=== PATIENT | male | born 1985 ===

== ENCOUNTER 2020-10-12 15:15 | Outpatient (REF) | payer MEDICAID, SELFPAY | END 2020-10-12 15:16 | disposition home or self-care (01) | LOC: HO.LAB 15:15 | PROVIDERS: Visit Provider Internal Medicine | DX: Z20.822 Contact with and (suspected) exposure to COVID-19 (principal) | CPT/HCPCS: 36415; C9803; U0003; U0005 ==

== ENCOUNTER 2021-11-03 01:30 | Emergency (ER) | payer MEDICAID, SELFPAY ==
[2021-11-03 01:35] VITALS: BP 153/79; PULSE 84; RESP 16; TEMP 36.8; O2SAT 98; BMI 25.8
[2021-11-03 01:56] LABS: IDNOW Serial# 08D9AD1C; Strep A Nucleic Acid Negative (Negative)
--- NOTE | 2021-11-03 02:08 | ED_ITS ---
HPI - General Adult General Chief complaint: General Medical Stated complaint: throat closing Time Seen by Provider: 11/03/21 02:06 Source: patient Mode of arrival: ambulatory Limitations: no limitations History of Present Illness HPI narrative: 35 years old male came in for evaluation of scratchy throat. Patient woke up from sleeping with scratchy throat more in the left side of his throat, patient felt that his left throat is swollen and could not breathe he that anxious and walked to the hospital for further evaluation. 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 Patient in the emergency department sitting comfortably and breathing normally. Related Data Allergies Allergy/AdvReac Type Severity Reaction Status Date / Time No Known Allergies Allergy Verified 11/03/21 01:34 Review of Systems Review of Systems: All other systems are reviewed and are negative Constitutional: Reports as per HPI and Reports no additional constitutional complaints Eyes: Reports as per HPI and Reports no additional eye complaints Reports system reviewed and no additional complaints, except as documented Cardiovascular: Reports as per HPI and Reports no additional cardiovascular complaints Respiratory: Reports as per HPI and Reports no additional respiratory complaints Gastrointestinal: Reports as per HPI and Reports no additional gastrointestinal complaints Genitourinary: Reports no additional female genitourinary complaints Musculoskeletal: Reports no additional musculoskeletal complaints Skin/Breast: Reports system reviewed and no additional complaints, except as docu Psychiatric: Reports no additional psychiatric complaints Endocrine: Reports no additional endocrine complaints Hematologic/Lymphatic: Reports no additional hematologic/lymphatic complaints Allergic/Immunologic: Reports no additional allergic/immunologic complaints Reports system reviewed and no additional complaints, except as documented and Reports Abnormal speech present [facility] Social History Social History Advance Directives: No Physical Exam ED Vital Signs: Vital Signs - 24 hr 11/03/21 01:35 Temperature 98.2 F Pulse Rate 84 Respiratory Rate 16 Blood Pressure 153/79 H Pulse Oximetry 98 BMI result Body Mass Index 25.8 Vital signs have been reviewed as appeared to be correct. Blood pressure norm al. Heart rate normal. Respiration rate normal. Temperature normal. Oxygen saturation normal. Appearance: Alert. Oriented X3. No acute distress. Head: Normal external exam. Normocephalic. Atraumatic. No Pelletier signs noted. No raccoon eyes noted Eyes: PERRLA. EOMI. Conjunctiva and sclera normal. Eyelids normal. ENT: TM's Normal. Pharynx normal. Uvula midline. Moist mucous membranes. No trismus noted. No drooling noted. No muffled voice noted. Neck: Normal inspection. Neck supple. FROM. No adenopathy. Thyroid Normal. No meningeal signs. No neck mass noted. CVS: Normal heart rate and rhythm. Heart sound normal. No murmurs noted. Pulses normal throughout. Respiratory: No respiratory distress. Painless inspiration. Breath sounds normal. No wheezes/rales/rhonchi noted. Chest nontender. No accessory muscle usage noted or decreased air movement noted. Abdomen: Soft and nontender. Bowel sounds normal in all 4 quadrants. No distention noted. No organomegaly noted. No visible injury noted. Back: No CVA tenderness. Full range of motion noted. Skin: Skin warm and dry. Normal skin color. Normal skin turgor. No rashes/lesions/lacerations noted. Extremities: No lower extremity edema. Extremities exhibit normal range of motion. Extremities nontender. Neuro: Oriented X 3. Cranial nerve exam: II-XII are grossly intact No motor deficit. No sensory deficit. Reflexes normal. Course Course Course Narrative: Assessment and plan. 35-year-old male came in for symptoms of scratchy throat and subjective feeling of throat swelling, in the emergency department patient had patent airway, with normal O2 sat, tested negative for strep pharyngitis. Will discharge the patient with reassurance. Medical Decision Making Lab Data Lab results reviewed: Yes I reviewed the patient's lab results. Labs: Lab Results 11/03/21 11/03/21 Range/Units 01:40 02:15 Influenza Type A (PCR) NEGATIVE (Negative) Influenza Type B (PCR) NEGATIVE (Negative) RSV RNA Qual (PCR) NEGATIVE (Negative) SARS-CoV-2 RNA (RT-PCR) NEGATIVE (Negative) S. pyogenes GrpA PEDRO Negative (Negative) Discharge Plan Discharge Clinical Impression: Acute sore throat Patient Disposition: Home, Self-Care Additional Instructions: Seek immediate medical attention if have difficulty breathing or swelling of the throat, fever, or chills. Referrals: Physician,Unknown J [Primary Care Provider] - 2 days Stand Alone Forms: Work/School Release
[2021-11-03 02:56] LABS: Influenza A PCR NEGATIVE (Negative); Influenza B PCR NEGATIVE (Negative); Resp Syncy Virus RNA Qual PCR NEGATIVE (Negative); SARS COV2 PCR INHOUSE NEGATIVE (Negative)
== END 2021-11-03 03:10 | disposition home or self-care (01) ==
PROVIDERS: Emergency Provider Emergency Medicine
DX: J02.9 Acute pharyngitis, unspecified (principal); Z20.822 Contact with and (suspected) exposure to COVID-19
CPT/HCPCS: 0241U; 36415; 87651; 99283

== ENCOUNTER 2021-11-26 05:20 | Emergency (ER) | payer BC, MEDICAID, SELFPAY ==
[2021-11-26] MEDS: diphenhydrAMINE HCL 50 MG/ML VIAL IVPUSH (05:53)
[2021-11-26] MEDS: Famotidine/PF 20 MG/2 ML VIAL IVPUSH (05:53)
[2021-11-26] MEDS: methylPREDNISolone Sod Succ 125 MG/2 ML VIAL IVPUSH (05:53)
[2021-11-26 06:04] VITALS: BP 140/87; PULSE 98; RESP 16; TEMP 36.6; O2SAT 97; BMI 25.1
--- NOTE | 2021-11-26 06:08 | ED.GENADULT ---
HPI - General Adult General Chief complaint: General Medical Stated complaint: THROAT SWELLING DIFF BREATING Time Seen by Provider: 11/26/21 05:42 Source: patient Mode of arrival: ambulatory History of Present Illness HPI narrative: 35-year-old male without significant past medical history presents with awakening from sleep and feeling like his throat was swelling and having pain on swallowing that did not exist prior to going to sleep. Patient denies any difficulty breathing or wheezing within his chest and denies any facial/lip/tongue swelling. Patient states he had 2 glasses of white wine as well as some marijuana prior to going to sleep and neither of these is new to the patient. Related Data Previous Rx's Medication Instructions Recorded epinephrine 0.3 mg/0.3 mL 0.3 mg (0.3 mL) IM Q4H PRN #2 ea 11/26/21 injection, auto-injector (EpiPen) Allergies Allergy/AdvReac Type Severity Reaction Status Date / Time No Known Allergies Allergy Verified 11/03/21 01:34 Review of Systems Review of Systems: Pertinent positives and negatives as stated in HPI 10 point review of systems is otherwise negative. PMFSH Past Medical History Source: nursing notes reviewed Social History Social History Alcohol intake: current Patient Tobacco Use Status: Never used Tobacco Use of substances other than those prescribed or required for medical reasons: No Advance Directives: Yes Advance Directives Information Provided: Yes Advance Directives on File: No Physical Exam ED Vital Signs: Vital Signs - 24 hr 11/26/21 06:04 Temperature 97.9 F Pulse Rate 98 Respiratory Rate 16 Blood Pressure 140/87 H Pulse Oximetry 97 BMI result Body Mass Index 25.1 VITAL SIGNS: Reviewed. GENERAL: Well developed, well nourished, in no acute distress. HEAD: Normocephalic/atraumatic EYES: PERRLA, EOMI EARS: Ext canals without abnormality, TMs non-bulging and non-erythematous NOSE: Nares patent bilateral OROPHARYNX: no oral lesions noted, posterior pharynx clear and non-erythematous without noted tonsillar enlargement/erythema/exudates, no facial/lip/tongue swelling, however significant swelling of the uvula noted without involvement of the posterior pharynx NECK: Supple, no adenopathy LUNGS: Normal breath sounds, no tachypnea, no stridor, no wheeze. SpO2<97> CARDIOVASCULAR: Regular rate and rhythm without noted murmurs ABDOMEN: Soft, non-tender, non-distended with bowel sounds. MUSCULOSKELETAL: No tenderness, deformities, or effusions noted on gross inspection. EXTREMITIES: No cyanosis, clubbing or edema. SKIN: Inspection of the skin reveals no rashes NEUROLOGIC: Alert and oriented x 4. Strength and sensation to light touch were grossly intact x 4. Course Course Course Narrative: 35-year-old male with history and clinical presentation consistent with uvulitis 0618: Recheck of posterior pharynx demonstrates increasing edema the uvula and surrounding superior tissue, again no noted posterior pharynx edema/no stridor/no wheeze. Patient will receive Epi IM. Signed out to Dr Ling Medical Decision Making Lab Data Result diagrams: 11/26/21 07:04 11/26/21 07:04 Labs: Lab Results 11/26/21 Range/Units 07:04 WBC 10.3 (4.8-10.8) X10*3/uL RBC 4.98 (4.60-5.80) X10*6/uL Hgb 14.3 (14.0-18.0) g/dl Hct 42.8 (42.0-52.0) % MCV 85.9 (80.0-98.0) fL MCH 28.7 (27.0-33.0) pg MCHC 33.4 (31.0-36.0) g/dl RDW 12.7 (11.0-16.0) % Plt Count 268 (160-400) X10*3/uL MPV 9.5 (9.4-12.4) fL Immature Gran % (Auto) 0.4 (0.0-0.4) % Neut % (Auto) 40.2 L (45-73) % Lymph % (Auto) 45.3 H (20-40) % [place] % (Auto) 11.4 H (2-11) % Eos % (Auto) 2.1 (0-4) % Baso % (Auto) 0.6 (0-2) % Lymph # (Auto) 4.7 (1.2-4.9) X10*3/uL [place] # (Auto) 1.2 (0.1-1.2) X10*3/uL Eos # (Auto) 0.2 (0.0-0.4) X10*3/uL Baso # (Auto) 0.1 (0.0-0.2) X10*3/uL Abs Immat Gran (auto) 0.04 H (0.00-0.03) X10*3/uL Absolute Neuts (auto) 4.1 (2.0-8.3) x10*3/uL Absolute Nucleated RBC 0.000 (0.0-0.012) X10*3/uL Nucleated RBC % (auto) 0.0 (0.0-0.2) /100WBC Discharge Plan Discharge Clinical Impression: Uvulitis, Allergic reaction Patient Disposition: Still a Patient Instructions: Uvulitis (ED), General Allergic Reaction (ED) Prescriptions: New epinephrine [EpiPen] 0.3 mg/0.3 mL auto-injector 0.3 mg IM Q4H PRN (Reason: anaphylaxis) Qty: 2 0RF
[2021-11-26] MEDS: EPINEPHrine 1 MG/ML VIAL 0.3 MG IM (06:29)
--- NOTE | 2021-11-26 06:42 | PC.NURSE ---
I assumed nursing care of Aquilino on his arrival to bed 7 from the waiting room. He presents for evaluation of the sensation that his throat is swelling and throat pain. He is alert, oriented x 3, calm and cooperative. Respirations non-labored, speech clear and appropriate, no cyanosis, room air sat's WNL. There is obvious redness and mild swelling noted to the pt's uvula. When the pt talks he occasionally stops mid sentence because he can feel his uvula resting on the back of his tongue. He is able to handle his own secretions without any difficulty, and he has been taking sips of cold water without any difficulty. There is no nausea, no vomiting. IV access was obtained and ordered meds were given (see EMar for times and doses). Shortly after initial meds were given he was re-assessed by ER MD who then requested Epinephrine 0.3mg IM be given. This was given and pt was placed on continuous heart monitor. HR 98, SR. Pt remains awake, alert, oriented x 3, no hoarseness, no diff swallowing or handling his own secretions. Will continue to monitor Aquilino.
[2021-11-26 07:09] LABS: Basophils Absolute Auto 0.1 X10*3/uL (0.0-0.2); Basophils Percent Auto 0.6 % (0-2); Eosinophils Absolute Auto 0.2 X10*3/uL (0.0-0.4); Eosinophils Percent Auto 2.1 % (0-4); Hematocrit 42.8 % (42.0-52.0); Hemoglobin 14.3 g/dl (14.0-18.0); Imm Gran Abs Auto 0.04 X10*3/uL (0.00-0.03); Imm Gran Pct Auto 0.4 % (0.0-0.4); Lymphocytes Absolute Auto 4.7 X10*3/uL (1.2-4.9); Lymphocytes Percent Auto 45.3 % (20-40); MANUAL DIFF FLAG NO; Mean Corpuscular HGB Conc 33.4 g/dl (31.0-36.0); Mean Corpuscular Hemoglobin 28.7 pg (27.0-33.0); Mean Corpuscular Volume 85.9 fL (80.0-98.0); Mean Platelet Volume 9.5 fL (9.4-12.4); Monocytes Absolute Auto 1.2 X10*3/uL (0.1-1.2); Monocytes Percent Auto 11.4 % (2-11); Neutrophils Absolute Auto 4.1 x10*3/uL (2.0-8.3); Neutrophils Percent Auto 40.2 % (45-73); Platelet Count 268 X10*3/uL (160-400); Red Blood Count 4.98 X10*6/uL (4.60-5.80); Red Cell Distribution Width 12.7 % (11.0-16.0); White Blood Count 10.3 X10*3/uL (4.8-10.8)
[2021-11-26 07:26] LABS: Alanine Aminotransferase 85 U/L (0-40); Alkaline Phosphatase 65 U/L (39-117); Anion Gap 11 (12-20); Aspartate Amino Transferase 42 U/L (5-37); Bilirubin Total 0.5 mg/dL (0.0-1.0); Blood Urea Nitrogen 13 mg/dL (9-16); Calcium 8.4 mg/dL (8.4-10.2); Carbon Dioxide 24 mmol/L (22-29); Chloride 108 mmol/L (96-108); Creatinine Clr Calc Pharmacy 129.7; Estimated Glomerular Filt Rate > 60; Glucose Random 128 mg/dL (60-115); Potassium 3.8 mmol/L (3.3-5.1); Sodium 139 mmol/L (135-145); Total Protein 6.9 g/dL (6.5-8.0)
[2021-11-26 08:24] VITALS: BP 147/85; PULSE 83; RESP 14; TEMP 36.7; O2SAT 96
== END 2021-11-26 11:04 | disposition home or self-care (01) ==
PROVIDERS: Student in an Organized Health Care Education/Training Program; Emergency Provider Emergency Medicine
DX: K12.2 Cellulitis and abscess of mouth (principal); T78.40XA Allergy, unspecified, initial encounter; X58.XXXA Exposure to other specified factors, initial encounter; F12.90 Cannabis use, unspecified, uncomplicated
CPT/HCPCS: 36415; 80053; 85025; 96372; 96374; 96375; 99284; J0171; J1200; J2930

== ENCOUNTER 2022-06-19 08:11 | Emergency (ER) | payer OTHER, MEDICAID, SELFPAY ==
[2022-06-19 09:11] VITALS: BP 142/79; PULSE 74; RESP 16; TEMP 36.4; O2SAT 98; BMI 25.8
--- NOTE | 2022-06-19 10:25 | ED_ITS ---
HPI - Back Pain/Injury General Chief Complaint: Back Pain/Injury Stated Complaint: back pain down l leg Time Seen by Provider: 06/19/22 10:09 Source: patient Mode of arrival: ambulatory Limitations: no limitations History of Present Illness HPI Narrative: Patient presents emergency department for evaluation of left lower back pain. Onset was 2-3 weeks ago. 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 But he did awake 1 morning with the pain. The pain has become progressively worse. Is described as aching and radiates down the left leg intermittently. It is exacerbated by particular movements are prolonged sitting/standing. Has trialed ibuprofen at home without significant improvement. Reports that he has an appointment with a chiropractor in approximately 2 weeks. Denies recent precipitating injury, fevers, chills, burning with micturition, urinary frequency/urgency/hesitancy, bladder or bowel dysfunction, numbness or tingling of the perineum or bilateral legs. Denies any recent surgical procedures, any known immune compromising conditions, personal history of cancer, or IV drug usage. MD elicited complaint: back pain Related Data Previous Rx's Medication Instructions Recorded doxycycline hyclate 100 mg capsule 100 mg PO BID 7 days #14 caps 11/26/21 epinephrine 0.3 mg/0.3 mL 0.3 mg (0.3 mL) IM Q4H PRN 11/26/21 injection, auto-injector (EpiPen) anaphylaxis #2 ea famotidine 20 mg tablet (Pepcid) 20 mg PO DAILY PRN abdominal 11/26/21 discomfort #30 tabs ondansetron 4 mg disintegrating 4 mg PO Q8H PRN nausea and 11/26/21 tablet vomiting #20 tabs prednisone 20 mg tablet 40 mg PO DAILY 4 days #8 tabs 11/26/21 cyclobenzaprine 10 mg tablet 10 mg PO TID PRN muscle spasm #20 06/19/22 tabs naproxen 500 mg tablet 500 mg PO BID PRN pain #14 tabs 06/19/22 Allergies Allergy/AdvReac Type Severity Reaction Status Date / Time No Known Allergies Allergy Verified 11/03/21 01:34 Review of Systems Review of Systems: Constitutional: No weight loss, fever, chills, weakness or fatigue. HEENT: No visual loss, blurred vision, double vision. No hearing loss, sneezing, congestion, runny nose or sore throat. Skin: No rash or itching. Cardiovascular: No chest pain, chest pressure or chest discomfort. No palpitations or pedal edema. Respiratory: No shortness of breath, cough or sputum production. Gastrointestinal: No anorexia, nausea, vomiting or diarrhea. No abdominal pain or blood in stool. Genitourinary: No burning micturition. No urinary frequency or incontinence. Neurologic: No headache, dizziness, syncope, unilateral weakness, ataxia, numbn ess or tingling in the extremities. No change in bowel or bladder control. Musculoskeletal: + Back pain as noted in HPI. No joint pain or stiffness. Hematologic: No bleeding or bruising. Lymphatics: No enlarged lymph nodes. Psychiatric:No depression or anxiety. Endocrine: No reports of sweating. No cold or heat intolerance. No polyuria or polydipsia. [facility] Past Medical History Attestation statement: The following information was validated with the patient. Source: old records reviewed Social History Social History Alcohol intake: current Patient Tobacco Use Status: Never used Tobacco Advance Directives: No Advance Directives Information Provided: No Physical Exam Vital Signs: Vital Signs: Last Vital Signs Temp 97.5 F 06/19/22 09:11 Pulse 74 06/19/22 09:11 Resp 16 06/19/22 09:11 BP 142/79 H 06/19/22 09:11 Pulse Ox 98 06/19/22 09:11 O2 Del Method 06/19/22 09:11 BMI result Body Mass Index 25.8 Vital signs have been reviewed as normal and appeared to be correct. Blood pressure normal.? Heart rate normal.? Respiration rate normal. Temperature normal.? Oxygen saturation normal. Appearance: Alert.?Oriented to person, place and time. No acute distress.?Normal affect. Eyes: Pupils equal, round and reactive to light.? ENT: Pharynx normal.?? Neck: Normal inspection.? Neck supple.?? CVS: Heart sounds normal. Normal heart rate and rhythm.? Pulses normal; bilateral radial pulses 2+, bilateral posterior tibial/dorsalis pedis pulses 2+.? Respiratory: No respiratory distress.? Lung sounds clear to auscultation bilaterally?? Abdomen: Soft and non-tender. Normoactive bowel sounds. No pulsatile mass.?? Skin: Skin warm and dry.? Normal skin color.? Normal skin turgor.?? Extremities: No lower extremity edema.? No calf ttp? Back: + mild paraspinal muscular tenderness from lumbar region to coccyx. No CVA tenderness. No midline spinal tenderness, step-off's, or deformity. Full ROM intact in bilateral lower extremities. Straight leg test negative on right; Straight leg test positive on left. No rashes, lesions, areas of induration or fluctuance, or signs of infection noted., Neuro: Moves all extremities spontaneously. 5/5 strength in hip extension/flexion, abduction, adduction. Sensation to light touch intact bilaterally. Patellar and Achilles reflex 2+ bilaterally. No ataxia, gait normal and steady. No focal neuro deficits. Course Course Course Narrative: Patient is a 36-year-old male with no significant past medical history presenting to emergency department for evaluation of left lower back pain. Pain is most consistent with muscular pain and associated lumbar radiculopathy, although cannot completely exclude herniated disc. On neurological exam there are no deficits. Not consistent with spinal fracture, spinal infection, epidural abscess, AAA, epidural abscess, or dissection. No high risk past medical history including incontinence, fever, immunosuppression, recent surgery or lumbar puncture, coagulopathy, significant trauma, recent unintentional weight loss, pulsatile mass, history of cancer, history of TB, history of IV drug use that would warrant MRI or CT. Not consistent with pyelonephritis, renal calculi, appendicitis, diverticulitis. On exam no concern for cauda equina syndrome. No imaging is currently indicated at this time. Received ketorolac IM while in the emergency department with some improvement in pain. Plan for discharge home with new prescription for naproxen and cyclobenzaprine, reviewed worrisome signs and symptoms to return back to emergency department for, advised follow-up with primary care provider, and patient agreed with plan. MDM - Back Pain/Injury Medical Records Attestation: I reviewed the patient's medical records. Discharge Plan Discharge Clinical Impression: Lumbar radiculopathy Patient Disposition: Home, Self-Care Instructions: Lumbar Radiculopathy (ED), Lower Back Exercises (ED) Additional Instructions: You can take Tylenol 500 mg, 2 tablets (1,000mg) every 4-6 hours as needed for pain, but not to exceed 3 doses daily (3,000mg).? Prescription for naproxen was sent to your pharmacy, please begin this tonight. It is taken twice daily with food to prevent stomach upset, use it as needed for pain. You have also been given a new prescription for cyclobenzaprine/Flexeril. This is a muscle relaxant. It may make you drowsy. You should not drive, operate machinery, drink alcohol while taking this medication. I recommend taking it for the first time at bedtime. It can be taken every 8 hours as needed for pain. Please return to the emergency department with any new or worsening symptoms or concerns. Contact your primary care provider to arrange for a follow-up visit later this week, as well as maintain your appointment with chiropractor as you have scheduled. Prescriptions: New naproxen 500 mg tablet 500 mg PO BID PRN (Reason: pain) Qty: 14 0RF cyclobenzaprine 10 mg tablet 10 mg PO TID PRN (Reason: muscle spasm) Qty: 20 0RF No Action epinephrine [EpiPen] 0.3 mg/0.3 mL auto-injector 0.3 mg IM Q4H PRN (Reason: anaphylaxis) Qty: 2 0RF doxycycline hyclate 100 mg capsule 100 mg PO BID 7 Days Qty: 14 0RF prednisone 20 mg tablet 40 mg PO DAILY 4 Days Qty: 8 0RF famotidine [Pepcid] 20 mg tablet 20 mg PO DAILY PRN (Reason: abdominal discomfort) Qty: 30 0RF ondansetron 4 mg tablet,disintegrating 4 mg PO Q8H PRN (Reason: nausea and vomiting) Qty: 20 0RF Referrals: Physician,Unknown J [Primary Care Provider] -
[2022-06-19] MEDS: Ketorolac Tromethamine 60 MG/2 ML VIAL IM (10:38)
== END 2022-06-19 11:30 | disposition home or self-care (01) ==
PROVIDERS: Emergency Provider Emergency Medicine
DX: M54.16 Radiculopathy, lumbar region (principal); M54.42 Lumbago with sciatica, left side
CPT/HCPCS: 96372; 99283; 99284; J1885

== ENCOUNTER 2022-08-27 09:26 | Emergency (ER) | payer OTHER, MEDICAID, SELFPAY ==
[2022-08-27 09:30] VITALS: BP 143/88; PULSE 100; RESP 19; TEMP 36.6; O2SAT 98; BMI 24.3
[2022-08-27] MEDS: methylPREDNISolone Sod Succ 125 MG/2 ML VIAL 60 MG IM (10:24)
[2022-08-27 10:48] LABS: IDNOW Serial# 6674DD1D; Strep A Nucleic Acid Negative (Negative)
--- NOTE | 2022-08-27 10:52 | ED_ITS ---
HPI - URI/Sore Throat General Chief Complaint: General Medical Stated Complaint: allergic reaction throat thighness Time Seen by Provider: 08/27/22 09:56 Source: patient Mode of arrival: ambulatory Limitations: no limitations History of Present Illness HPI Narrative: 36yoM is presenting to the ER with complaints of uvula swelling that he noticed this morning. Reports that he had a similar episode in the past and was prescribed an EpiPen although he did not want to use it due to the uvula is not as swollen as it was last time. Reports that last episode he was seen here on 11/26/2021 and he was having difficulty swallowing and breathing and at that time they did give him the EpiPen. He reports it is not that bad today therefore he does not believe he needs to EpiPen. He denies any new substances. He reports it does not actually her which is feels swollen. He denies any other symptoms complaints or concerns at this time. MD elicited complaint: other (Uvula swelling) Onset (ago): hour(s) (Started this morning) Consistency: constant Severity: mild Exacerbating factors: nothing Relieving factors: nothing Associated symptoms: denies other symptoms Treatments prior to arrival: none Related Data Previous Rx's Medication Instructions Recorded doxycycline hyclate 100 mg capsule 100 mg PO BID 7 days #14 caps 11/26/21 epinephrine 0.3 mg/0.3 mL 0.3 mg (0.3 mL) IM Q4H PRN 11/26/21 injection, auto-injector (EpiPen) anaphylaxis #2 ea famotidine 20 mg tablet (Pepcid) 20 mg PO DAILY PRN abdominal 11/26/21 discomfort #30 tabs ondansetron 4 mg disintegrating 4 mg PO Q8H PRN nausea and 11/26/21 tablet vomiting #20 tabs prednisone 20 mg tablet 40 mg PO DAILY 4 days #8 tabs 11/26/21 cyclobenzaprine 10 mg tablet 10 mg PO TID PRN muscle spasm #20 06/19/22 tabs naproxen 500 mg tablet 500 mg PO BID PRN pain #14 tabs 06/19/22 amoxicillin 875 mg-potassium 1 tab PO BID 7 days #14 tabs 08/27/22 clavulanate 125 mg tablet diphenhydramine HCl 25 mg tablet 50 mg PO TID PRN allergic reaction 08/27/22 (Benadryl Allergy) #20 tabs prednisone 20 mg tablet 40 mg PO DAILY inflammation 5 days 08/27/22 #10 tabs Allergies Allergy/AdvReac Type Severity Reaction Status Date / Time No Known Allergies Allergy Verified 11/03/21 01:34 Review of Systems Review of Systems: Constitutional : No Weight loss, No Fever, No Chills, No Night Sweats, No Fatigue, No Malaise ENT/Mouth : + uvula swelling, No Hearing loss, No Ear Pain, No Nasal Congestion, No Sinus Pain, No Hoarseness, No sore throat, No Rhinorrhea, No Swallowing Difficulty Eyes: No Eye Pain, No Swelling, No Redness, No Foreign Body, No Discharge, No Vision Changes Cardiovascular : No Chest Pain, No SOB, No Dyspnea on Exertion, No Orthopnea, No Edema, No Palpitations Respiratory : No Cough, No Sputum, No Wheezing, No Smoke Exposure, No Dyspnea Gastrointestinal : No Nausea, No Vomiting, No Diarrhea, No Constipation, No abdominal Pain, No Hematochezia, No Melena Genitourinary : no irregular bleeding, No Dysuria, No Urinary Frequency, No Hem aturia, No Urinary Incontinence, No Urgency, No Flank Pain, No Urinary Flow Changes, No Hesitancy Musculoskeletal : No joint pain, No Myalgias, No Joint Swelling Skin : No Skin Lesions, No rash Neuro : No Weakness, No Numbness, No Paresthesias, No Loss of Consciousness, No Dizziness, No Headache Psych : No Anxiety/Panic, No Depression, No SI/HI/AH/VH, No Social Issues, Heme/Lymph: No Bruising, No Bleeding,No Lymphadenopathy Endocrine : No Polyuria, No Polydipsia, No Temperature Intolerance Yes all other systems are reviewed and are negative ON LICENSE OF [facility] Past Medical History Attestation statement: The following information was validated with the patient. Source: old records reviewed and nursing notes reviewed Social History Social History Alcohol intake: current Patient Tobacco Use Status: Never used Tobacco Advance Directives: No Advance Directives Information Provided: Yes Physical Exam Vital Signs: Vital Signs: Last Vital Signs Temp 98 F 08/27/22 09:30 Pulse 100 08/27/22 09:30 Resp 19 08/27/22 09:30 BP 143/88 H 01/01/23 09:30 Pulse Ox 98 08/27/22 09:30 O2 Del Method 08/27/22 09:30 BMI result Body Mass Index 24.3 Vital signs reviewed. Blood pressure normal. Pulse normal. Respiration normal. Oxygen normal. Temperature normal. Appearance: Alert. Oriented X3. No acute distress. Head: Normal external exam. Normocephalic. Atraumatic. Eyes: PERRLA. EOMI. Conjunctiva and sclera normal. Eyelids normal. ENT: EAC normal. TM's Normal. Pharynx normal. Uvula is midline although erythematous and mild soft tissue swelling/edema. Some exudate noted on the right tonsil.. Moist mucous membranes. No lesions/ulcerations or masses noted on the tongue. Normal voice. No trismus noted. No drooling noted. No muffled voice noted. No stridor noted. Patient tolerating secretions well. Neck: Normal inspection. Neck supple. FROM. No adenopathy. Thyroid Normal. No meningeal signs. CVS: Normal heart rate and rhythm. Heart sound normal. Pulses normal throughout. No murmurs/rales/gallops. Respiratory: No respiratory distress. Painless inspiration. Breath sounds normal. No wheezes/rales/rhonchi noted. Chest nontender. No accessory muscle usage noted or decreased air movement noted. Abdomen: Soft and nontender. Back: Full range of motion noted. Nontender. Skin: Skin warm and dry. Normal skin color. Normal skin turgor. No rashes/lesions/lacerations noted. Extremities: Extremities exhibit normal range of motion and nontender. Neuro: Oriented X 3. No motor deficit. No sensory deficit. Reflexes normal. Normal steady gait. No focal neuro deficits noted. CN's II-XII intact bilaterally? Vascular: + radial pulses. Normal cap refill. No cyanosis noted to upper extremity nails Course Course Course Narrative: Patient tested for strep negative. He does have some exudate to the right tonsil. He denies any new substances. He is tolerating p.o. fluids/solids without any difficulties. No trismus/drooling/stridor. No difficulty swallowing. Uvula is midline mildly erythematous and mild soft tissue swelling. Lungs are clear to auscultation. Therefore at this time will DC home with prednisone Benadryl and some antibiotics and instructions return if any new or worsening symptoms. Patient understands agrees with this plan. Medications Administered Discontinued Medications Generic Name Dose Route Start Last Admin Trade Name Freq PRN Reason Stop Dose Admin Methylprednisolone Sodium Succinate 60 mg 08/27/22 10:12 08/27/22 10:24 Methylprednisolone Sod Succ 125 Mg/2 Ml Vial IM 08/27/22 10:13 60 mg ONCE ONE Administration Medical Decision Making Lab Data MDM Lab Attestation statement: I reviewed the patient's lab results. Labs: Lab Results 08/27/22 Range/Units 10:30 S. pyogenes GrpA PEDRO Negative (Negative) Discharge Plan Discharge Clinical Impression: Uvulitis Patient Disposition: Home, Self-Care Prescriptions: New prednisone 20 mg tablet 40 mg PO DAILY 5 Days Qty: 10 0RF diphenhydramine HCl [Benadryl Allergy] 25 mg tablet 50 mg PO TID PRN (Reason: allergic reaction) Qty: 20 0RF amoxicillin-pot clavulanate 875-125 mg tablet 1 tab PO BID 7 Days Qty: 14 0RF No Action naproxen 500 mg tablet 500 mg PO BID PRN (Reason: pain) Qty: 14 0RF cyclobenzaprine 10 mg tablet 10 mg PO TID PRN (Reason: muscle spasm) Qty: 20 0RF epinephrine [EpiPen] 0.3 mg/0.3 mL auto-injector 0.3 mg IM Q4H PRN (Reason: anaphylaxis) Qty: 2 0RF doxycycline hyclate 100 mg capsule 100 mg PO BID 7 Days Qty: 14 0RF prednisone 20 mg tablet 40 mg PO DAILY 4 Days Qty: 8 0RF famotidine [Pepcid] 20 mg tablet 20 mg PO DAILY PRN (Reason: abdominal discomfort) Qty: 30 0RF ondansetron 4 mg tablet,disintegrating 4 mg PO Q8H PRN (Reason: nausea and vomiting) Qty: 20 0RF Referrals: Physician,Unknown J [Primary Care Provider] - 3 days (Your PCP) Stand Alone Forms: Work/School Release
== END 2022-08-27 11:20 | disposition home or self-care (01) ==
PROVIDERS: Physician Assistant Medical; Emergency Provider Emergency Medicine
DX: K12.2 Cellulitis and abscess of mouth (principal); Z20.822 Contact with and (suspected) exposure to COVID-19; Z79.899 Other long term (current) drug therapy
CPT/HCPCS: 36415; 87651; 96372; 99283; 99284; J2930

== ENCOUNTER 2022-11-16 05:42 | Emergency (ER) | payer OTHER, MEDICAID, SELFPAY ==
--- NOTE | 2022-11-16 08:37 | ED_ITS ---
HPI - General Adult General Chief complaint: General Medical Time Seen by Provider: 11/16/22 08:03 Source: other History of Present Illness HPI narrative: This patient is a sign-out from Dr. Beckford and you should refer to her down time form for further information. Related Data Previous Rx's Medication Instructions Recorded doxycycline hyclate 100 mg capsule 100 mg PO BID 7 days #14 caps 11/26/21 epinephrine 0.3 mg/0.3 mL 0.3 mg (0.3 mL) IM Q4H PRN 11/26/21 injection, auto-injector (EpiPen) anaphylaxis #2 ea famotidine 20 mg tablet (Pepcid) 20 mg PO DAILY PRN abdominal 11/26/21 discomfort #30 tabs ondansetron 4 mg disintegrating 4 mg PO Q8H PRN nausea and 11/26/21 tablet vomiting #20 tabs prednisone 20 mg tablet 40 mg PO DAILY 4 days #8 tabs 11/26/21 cyclobenzaprine 10 mg tablet 10 mg PO TID PRN muscle spasm #20 06/19/22 tabs naproxen 500 mg tablet 500 mg PO BID PRN pain #14 tabs 06/19/22 amoxicillin 875 mg-potassium 1 tab PO BID 7 days #14 tabs 08/27/22 clavulanate 125 mg tablet diphenhydramine HCl 25 mg tablet 50 mg PO TID PRN allergic reaction 08/27/22 (Benadryl Allergy) #20 tabs prednisone 20 mg tablet 40 mg PO DAILY inflammation 5 days 08/27/22 #10 tabs Allergies Allergy/AdvReac Type Severity Reaction Status Date / Time No Known Allergies Allergy Verified 11/03/21 01:34 Review of Systems Review of Systems: Refer to the down time documentation. [facility] Past Medical History Source: nursing notes reviewed Social History Social History Alcohol intake: current Patient Tobacco Use Status: Never used Tobacco Advance Directives: No Physical Exam ED Vital Signs: Referred to the down time documentation 0839: I re-evaluated the patient at bedside and although the uvula is slightly erythematous with trace edema there is no concern for airway or swallowing compromise. Medical Decision Making Medical Decision Making MDM Narrative: 36-year-old male with history and clinical presentation of recurrent uvulitis that is not allergic in response and appears to be associated with possible NASREEN. We had a lengthy discussion at bedside and my recommendation to the patient is to follow-up with his primary care provider and discuss the merits of either a sleep study for CPAP at night or possible ENT referral. He is otherwise discharged home in stable condition Differential Diagnosis Please see the discussion above Discharge Plan Discharge Clinical Impression: Uvulitis Patient Disposition: Home, Self-Care Instructions: Uvulitis (ED) Additional Instructions: Recommend follow-up with your primary care provider for further discussion regarding a sleep study and/or a referral to follow-up with ENT. Do not hesitate to return to the emergency room for any worsening symptoms. Prescriptions: No Action naproxen 500 mg tablet 500 mg PO BID PRN (Reason: pain) Qty: 14 0RF cyclobenzaprine 10 mg tablet 10 mg PO TID PRN (Reason: muscle spasm) Qty: 20 0RF prednisone 20 mg tablet 40 mg PO DAILY 5 Days Qty: 10 0RF diphenhydramine HCl [Benadryl Allergy] 25 mg tablet 50 mg PO TID PRN (Reason: allergic reaction) Qty: 20 0RF amoxicillin-pot clavulanate 875-125 mg tablet 1 tab PO BID 7 Days Qty: 14 0RF epinephrine [EpiPen] 0.3 mg/0.3 mL auto-injector 0.3 mg IM Q4H PRN (Reason: anaphylaxis) Qty: 2 0RF doxycycline hyclate 100 mg capsule 100 mg PO BID 7 Days Qty: 14 0RF prednisone 20 mg tablet 40 mg PO DAILY 4 Days Qty: 8 0RF famotidine [Pepcid] 20 mg tablet 20 mg PO DAILY PRN (Reason: abdominal discomfort) Qty: 30 0RF ondansetron 4 mg tablet,disintegrating 4 mg PO Q8H PRN (Reason: nausea and vomiting) Qty: 20 0RF
== END 2022-11-16 08:56 | disposition home or self-care (01) ==
PROVIDERS: Emergency Provider Student in an Organized Health Care Education/Training Program
DX: K12.2 Cellulitis and abscess of mouth (principal); Z79.899 Other long term (current) drug therapy
CPT/HCPCS: 96374; 96375; 99284

== ENCOUNTER → 2024-09-02 09:59 | Outpatient (BNV) | payer OTHER, MEDICAID, SELFPAY | PROVIDERS: Emergency Provider Emergency Medicine; Visit Provider Internal Medicine | DX: R94.31 Abnormal electrocardiogram [ECG] [EKG] (principal) | CPT/HCPCS: 93010 ==

== ENCOUNTER 2025-03-05 13:29 | Emergency (ER) | payer BC, SELFPAY ==
--- NOTE | ~2025-03-05 | XR_ITS ---
EXAMINATION: XR CHEST CLINICAL INFORMATION: chest pain COMPARISON: None available. TECHNIQUE: 2 views of the chest were obtained. FINDINGS: The cardiac, hilar, and mediastinal contours are normal. The lungs are clear bilaterally. There is no pneumothorax or pleural effusion. There is no focal osseous or soft tissue abnormality. XR/XR chest 2V IMPRESSION: Normal chest. Electronically signed by: Brown Horner MD 03/05/2025 02:23 PM EDT
--- NOTE | 2025-03-05 13:34 | ECG_ITS ---
Test Reason : CHEST PAIN Blood Pressure : */* mmHG Vent. Rate : 82 BPM Atrial Rate : 82 BPM P-R Int : 136 ms QRS Dur : 78 ms QT Int : 346 ms P-R-T Axes : 38 42 -4 degrees QTcB Int : 404 ms Normal sinus rhythm Nonspecific T wave abnormality Abnormal ECG When compared with ECG of 02-Sep-2024 10:34, Nonspecific T wave abnormality no longer evident in Anterior leads Referred By: dAdis Masters Electronically Signed By: Gaston Goel
[2025-03-05 13:51] VITALS: BP 121/73; PULSE 93; RESP 16; TEMP 36.5; O2SAT 96; BMI 25.3
--- NOTE | 2025-03-05 13:51 | ED_ITS ---
HPI - General Adult General Chief complaint: Chest Pain Stated complaint: sob chest tightness Time Seen by Provider: 03/05/25 17:00 Source: patient and RN notes reviewed Mode of arrival: ambulatory Limitations: no limitations History of Present Illness ED Provider: Addis Masters PA-C HPI narrative: This is a 39-year-old male, with no known medical problems, who presents emergency department with complaints of subjective fevers, chills, cough, congestion, diarrhea for the last 2 days. Patient reports that he also has had intermittent chest tightness, which typically occurs with cough. No sick contacts. He has been taking NyQuil and DayQuil for symptoms. No significant shortness for breath or severe chest pain. No nausea or vomiting.. No other complaints or concerns at this time. MD complaint: Cough, fevers Onset (ago): day(s) Relieving factors: none Exacerbating factors: none Associated symptoms: cough and fever/chills Treatments prior to arrival: none Related Data Previous Rx's ?Medication ?Instructions ?Recorded doxycycline hyclate 100 mg capsule 100 mg PO BID 7 day s #14 caps 11/26/21 epinephrine 0.3 mg/0.3 mL 0.3 mg (0.3 mL) IM Q4H PRN 0 11/26/21 injection, auto-injector (EpiPen) anaphylaxis #2 ea famotidine 20 mg tablet (Pepcid) 20 mg PO DAILY PRN ab dominal 11/26/21 discomfort #30 tabs ondansetron 4 mg disintegrating 4 mg PO Q8H PRN nausea and 11/26/21 tablet vomiting #20 tabs prednisone 20 mg tablet 40 mg (2 x 20 mg) PO DAILY 4 days 11/26/21 #8 tabs cyclobenzaprine 10 mg tablet 10 mg PO TID PRN muscle s pasm #20 06/19/22 tabs naproxen 500 mg tablet 500 mg PO BID PRN pain #14 t abs 06/19/22 amoxicillin 875 mg-potassium 1 tab PO BID 7 days #14 t abs 08/27/22 clavulanate 125 mg tablet diphenhydramine HCl 25 mg tablet 50 mg (2 x 25 mg) PO TID PRN 08/27/22 (Benadryl Allergy) allergic reaction #20 tabs prednisone 20 mg tablet 40 mg (2 x 20 mg) PO DAILY 0 08/27/22 inflammation 5 days #10 tabs acetaminophen 500 mg tablet 1,000 mg (2 x 500 mg) PO Q 6H PRN 03/05/25 (Tylenol Extra Strength) fever or pain #30 tabs ibuprofen 600 mg tablet 600 mg PO Q6H PRN fever or p ain 03/05/25 #30 tabs Allergies Allergy/AdvReac Type Severity Reaction Status Date / Time No Known Allergies Allergy Verified 03/05/25 13:52 Review of Systems 2 Review of Systems: Yes all other systems are reviewed and are negative Constitutional: Constitutional: Reports as per [facility] Social History Social History Alcohol intake: current Alcohol intake frequency: 3 or more drinks per day Alcohol type: beer, wine and hard liquor Patient Tobacco Use Status: Never used Tobacco Substance Use Type: Marijuana Advance Directives: No Advance Directives Information Provided: No Physical Exam ED Vital Signs: Vital Signs - 24 hr 03/05/25 13:51 03/05/25 16:54 03/05/25 17:20 Temperature 97.7 F 98.2 F Pulse Rate 93 62 62 Respiratory Rate 16 16 16 Blood Pressure 121/73 128/88 128/88 Pulse Oximetry 96 98 98 Oxygen Delivery Method Room Air Room Air Room Air BMI result Body Mass Index 25.3 Const General: cooperative, comfortable and no acute distress Orientation/consciousness: patient oriented x3 Limitations: no limitations [facility] Head: Yes normal to inspection, Yes normocephalic and Yes atraumatic Ears: hearing grossly normal bilaterally General nose exam: Normal external nose present Face and sinus: Yes normal facial exam Mouth: Normal oral and palatal mucosa present, oropharynx normal and moist mucous membranes Throat: Yes posterior oropharynx normal Eyes General: appearance normal, both eyes and all related structures Eyelids: Yes eyelids normal Conjunctivae: conjunctivae normal Sclerae: sclerae normal Pupils: Equal, round and reactive pupils present EOM: EOMs intact bilaterally Neck Neck: Yes normal visual inspection, Yes full ROM and Yes no lymphadenopathy Lymphatic: no lymphadenopathy noted Chest Chest palpation & inspection: normal inspection of the chest Resp Effort & Inspection: normal respiratory effort and able to speak in complete sentences Auscultation: clear to auscultation bilaterally, no crackles, no rales, no rhonchi and no wheezes Cardio Rate: regular rate Rhythm: regular rhythm Heart sounds: S1 normal heart sound present and S2 normal heart sound present GI Inspection: Yes normal to inspection Skin General skin exam: no rashes or lesions noted Trauma: no lacerations or abrasions Wounds: no wounds Neuro General: patient oriented x3 and moves all extremities Cranial nerves: Yes Equal, round and reactive pupils present Extrem General: Yes normal to inspection Right upper extremity: normal to inspection Left upper extremity: normal to inspection Right lower extremity: normal to inspection Left lower extremity: normal to inspection Medical Decision Making Medical Decision Making [facility] Narrative: This is a 57-bdle-lco-male, with a hx of anxiety, who presents to the ER with a complaint of fevers, cough, congestion, diarrhea. Patient reports that he had an episode feeling warm, had a near syncopal episode, he states that he has had some ongoing chest tightness for the last several days. On arrival, vital signs within normal limits. He is speaking full sentences under no acute distress. Differential diagnoses include acute URI, COVID, flu, RSV, pneumonia. We ordered labs to rule out any acute abnormalities. He has no leukocytosis, stable H&H, chemistry within normal limits. Patient tested positive for COVID. Chest x-ray unremarkable for any acute findings, EKG with no acute ischemia. Discussed overall workup with patient. He is eating and drinking without difficulty. Reports some chest tightness which only occurs with cough. Discussed conservative measures in treatment of COVID. He understands and agrees with plan. He was given strict return precautions, patient stable for discharge. Differential Diagnosis Differential Diagnoses: The differential diagnosis associated with the presentation includes See above Lab Data [facility] Lab Attestation statement: I reviewed the patient's lab results. See MDM and course 03/05/25 15:57 03/05/25 15:57 Labs: Lab Results 03/05/25 Range/Units 15:57 WBC 9.1 (4.8-10.8) X10*3/uL RBC 5.40 (4.60-5.80) X10*6/uL Hgb 15.7 (14.0-18.0) g/dl Hct 45.6 (42.0-52.0) % MCV 84.4 (80.0-98.0) fL MCH 29.1 (27.0-33.0) pg MCHC 34.4 (31.0-36.0) g/dl RDW 12.9 (11.0-16.0) % Plt Count 254 (160-400) X10*3/uL MPV 9.6 (9.4-12.4) fL Immature Gran % (Auto) 0.3 (0.0-0.4) % Neut % (Auto) 61.0 (45-73) % Lymph % (Auto) 24.3 (20-40) % Hitchcock % (Auto) 9.9 (2-11) % Eos % (Auto) 3.5 (0-4) % Baso % (Auto) 1.0 (0-2) % Lymph # (Auto) 2.2 (1.2-4.9) X10*3/uL Hitchcock # (Auto) 0.9 (0.1-1.2) X10*3/uL Eos # (Auto) 0.3 (0.0-0.4) X10*3/uL Baso # (Auto) 0.1 (0.0-0.2) X10*3/uL Abs Immat Gran (auto) 0.03 (0.00-0.03) X10*3/uL Absolute Neuts (auto) 5.5 (2.0-8.3) x10*3/uL Absolute Nucleated RBC 0.000 (0.0-0.012) X10*3/uL Nucleated RBC % (auto) 0.0 (0.0-0.2) /100WBC Sodium 138 (135-145) mmol/L Potassium 4.9 D (3.3-5.1) mmol/L Chloride 107 (96-108) mmol/L Carbon Dioxide 26 (22-29) mmol/L Anion Gap 10 L (12-20) BUN 8 L (9-16) mg/dL Creatinine 0.86 (0.5-1.4) mg/dL Estim Creat Clear Calc 117.6 Estimated GFR > 60 Random Glucose 102 (60-115) mg/dL Calcium 9.2 (8.4-10.2) mg/dL Magnesium 2.5 (1.6-2.6) mg/dL Total Bilirubin 0.1 (0.0-1.0) mg/dL Direct Bilirubin < 0.2 (0.0-0.5) mg/dL AST 29 (5-37) U/L ALT 56 H (0-40) U/L Alkaline Phosphatase 72 (39-117) U/L Troponin I High Sens < 2.7 (<3.5-35.0) ng/L Total Protein 7.3 (6.5-8.0) g/dL Albumin 4.3 (3.5-5.0) g/dL Influenza Type A (PCR) NEGATIVE (Negative) Influenza Type B (PCR) NEGATIVE (Negative) RSV RNA Qual (PCR) NEGATIVE (Negative) SARS-CoV-2 RNA (RT-PCR) POSITIVE A (Negative) S. pyogenes GrpA PEDRO Negative (Negative) Independent Interpretation I performed an independent interpretation of an: EKG Interpretation: EKG normal sinus rhythm at a ventricular rate of 82 beats per minute, QT QTC 346/404, no STEMI. Radiology Impression Discussion of test interpretation with radiology: I have reviewed the radiologist's reading. Radiologist Impression: EXAMINATION: XR CHEST CLINICAL INFORMATION: chest pain COMPARISON: None available. TECHNIQUE: 2 views of the chest were obtained. FINDINGS: The cardiac, hilar, and mediastinal contours are normal. The lungs are clear bilaterally. There is no pneumothorax or pleural effusion. There is no focal osseous or soft tissue abnormality. XR/XR chest 2V IMPRESSION: Normal chest. Electronically signed by: Brown Horner MD 03/05/2025 02:23 PM EDT RP Dictated By: Brown Horner MD Discharge Plan Discharge Clinical Impression: COVID-19 Patient Disposition: Home, Self-Care Instructions: COVID-19 (Coronavirus Disease 2019) (ED), How to Recover from COVID-19 at Home (ED), Social Distancing Guidelines for COVID-19 (ED) Additional Instructions: You were seen in the emergency department and tested positive for COVID. Please drink plenty of fluids, and get plenty of rest. Alternate between ibuprofen and Tylenol as needed for fevers, and body aches. Take ibuprofen 600 mg every 6 hours with food. 2 hours later, you can take Tylenol 1000 mg, take this every 8 hours. Alternating between these 2 medications can provide you with good fever and body aches relief. If any new or worsening symptoms occur including but not limited to severe chest pain or shortness of breath, please seek emergent care. Prescriptions: New ibuprofen 600 mg tablet 600 mg PO Q6H PRN (Reason: fever or pain) Qty: 30 0RF acetaminophen [Tylenol Extra Strength] 500 mg tablet 1,000 mg PO Q6H PRN (Reason: fever or pain) Qty: 30 0RF No Action naproxen 500 mg tablet 500 mg PO BID PRN (Reason: pain) Qty: 14 0RF cyclobenzaprine 10 mg tablet 10 mg PO TID PRN (Reason: muscle spasm) Qty: 20 0RF prednisone 20 mg tablet 40 mg PO DAILY 5 Days Qty: 10 0RF diphenhydramine HCl [Benadryl Allergy] 25 mg tablet 50 mg PO TID PRN (Reason: allergic reaction) Qty: 20 0RF amoxicillin-pot clavulanate 875-125 mg tablet 1 tab PO BID 7 Days Qty: 14 0RF epinephrine [EpiPen] 0.3 mg/0.3 mL auto-injector 0.3 mg IM Q4H PRN (Reason: anaphylaxis) Qty: 2 0RF doxycycline hyclate 100 mg capsule 100 mg PO BID 7 Days Qty: 14 0RF prednisone 20 mg tablet 40 mg PO DAILY 4 Days Qty: 8 0RF famotidine [Pepcid] 20 mg tablet 20 mg PO DAILY PRN (Reason: abdominal discomfort) Qty: 30 0RF ondansetron 4 mg tablet,disintegrating 4 mg PO Q8H PRN (Reason: nausea and vomiting) Qty: 20 0RF Stand Alone Forms: Work/School Release Interventions: ED Discharge Assessment Last Done: 03/05/25 17:20 Discharge Date/Time: 03/05/25 17:20 Print Language: Kittitian
[2025-03-05 16:01] LABS: MANUAL DIFF FLAG NO
[2025-03-05 16:04] LABS: Hematocrit 45.6 % (42.0-52.0); Hemoglobin 15.7 g/dl (14.0-18.0); Imm Gran Abs Auto 0.03 X10*3/uL (0.00-0.03); Imm Gran Pct Auto 0.3 % (0.0-0.4); Lymphocytes Absolute Auto 2.2 X10*3/uL (1.2-4.9); Mean Corpuscular HGB Conc 34.4 g/dl (31.0-36.0); Mean Corpuscular Hemoglobin 29.1 pg (27.0-33.0); Mean Corpuscular Volume 84.4 fL (80.0-98.0); NRBC Abs Auto 0.000 X10*3/uL (0.0-0.012); NRBC Pct Auto 0.0 /100WBC (0.0-0.2); Platelet Count 254 X10*3/uL (160-400); Red Blood Count 5.40 X10*6/uL (4.60-5.80); White Blood Count 9.1 X10*3/uL (4.8-10.8)
[2025-03-05 16:15] LABS: IDNOW Serial# 55D5AD1C; Strep A Nucleic Acid Negative (Negative)
[2025-03-05 16:18] LABS: Alanine Aminotransferase 56 U/L (0-40); Albumin Level 4.3 g/dL (3.5-5.0); Alkaline Phosphatase 72 U/L (39-117); Anion Gap 10 (12-20); Aspartate Amino Transferase 29 U/L (5-37); Blood Urea Nitrogen 8 mg/dL (9-16); Calcium 9.2 mg/dL (8.4-10.2); Carbon Dioxide 26 mmol/L (22-29); Chloride 107 mmol/L (96-108); Creatinine Clr Calc Pharmacy 117.6; Estimated Glomerular Filt Rate > 60; Magnesium 2.5 mg/dL (1.6-2.6); Potassium 4.9 mmol/L (3.3-5.1); Sodium 138 mmol/L (135-145); Total Protein 7.3 g/dL (6.5-8.0)
[2025-03-05 16:27] LABS: Troponin-I High Sensitivity < 2.7 ng/L (<3.5-35.0)
[2025-03-05 16:40] LABS: Resp Syncy Virus RNA Qual PCR NEGATIVE (Negative); SARS COV2 PCR INHOUSE POSITIVE (Negative)
[2025-03-05 16:54] VITALS: BP 128/88; PULSE 62; RESP 16; O2SAT 98
[2025-03-05 17:20] VITALS: BP 128/88; PULSE 62; RESP 16; TEMP 36.8; O2SAT 98
== END 2025-03-05 17:20 | disposition home or self-care (01) ==
PROVIDERS: Physician Assistant Medical; Emergency Provider Emergency Medicine Emergency Medical Services
DX: U07.1 COVID-19 (principal); R06.02 Shortness of breath; R50.9 Fever, unspecified; R05.9 Cough, unspecified
CPT/HCPCS: 71046; 80048; 80076; 83735; 84484; 85025; 87637; 87651; 93005; 99283

== ENCOUNTER → 2025-03-05 13:34 | Outpatient (BNV) | payer BC, SELFPAY | PROVIDERS: Emergency Provider Emergency Medicine Emergency Medical Services; Visit Provider Internal Medicine Cardiovascular Disease | DX: R91.8 Other nonspecific abnormal finding of lung field (principal); R07.9 Chest pain, unspecified | CPT/HCPCS: 93010 ==

== ENCOUNTER → 2025-03-05 13:53 | Outpatient (BNV) | payer OTHER, SELFPAY | PROVIDERS: Visit Provider Radiology Diagnostic Radiology | DX: R07.9 Chest pain, unspecified (principal) | CPT/HCPCS: 71046 ==

== ENCOUNTER 2025-08-26 06:27 | Emergency (ER) | payer BC, OTHER, SELFPAY ==
--- NOTE | ~2025-08-26 | XR_ITS ---
EXAMINATION: XR CHEST 1 VIEW HISTORY: cough COMPARISON: Comparison is made with the prior examination dated 03/05/2025. FINDINGS: A single AP portable view of the chest performed at is submitted. The lungs are expanded and clear. There is no pleural effusion, pneumothorax, or pulmonary vascular congestion. The heart is normal in size. The bones are intact. XR/XR chest 1V IMPRESSION: No acute cardiopulmonary abnormality. Electronically signed by: Nakul Feliciano MD 08/26/2025 08:05 AM [facility] [place]
[2025-08-26 06:31] VITALS: BP 137/90; PULSE 95; RESP 20; TEMP 36.8; O2SAT 98; BMI 25.1
[2025-08-26 06:52] LABS: MANUAL DIFF FLAG NO
[2025-08-26 06:53] LABS: Hematocrit 46.0 % (42.0-52.0); Hemoglobin 15.8 g/dl (14.0-18.0); Imm Gran Abs Auto 0.01 X10*3/uL (0.00-0.03); Imm Gran Pct Auto 0.1 % (0.0-0.4); Lymphocytes Absolute Auto 3.0 X10*3/uL (1.2-4.9); Mean Corpuscular HGB Conc 34.3 g/dl (31.0-36.0); Mean Corpuscular Hemoglobin 28.6 pg (27.0-33.0); Mean Corpuscular Volume 83.2 fL (80.0-98.0); NRBC Abs Auto 0.000 X10*3/uL (0.0-0.012); NRBC Pct Auto 0.0 /100WBC (0.0-0.2); Platelet Count 257 X10*3/uL (160-400); Red Blood Count 5.53 X10*6/uL (4.60-5.80); White Blood Count 7.4 X10*3/uL (4.8-10.8)
[2025-08-26 07:07] LABS: Alanine Aminotransferase 70 U/L (0-40); Albumin Level 4.3 g/dL (3.5-5.0); Alkaline Phosphatase 86 U/L (39-117); Anion Gap 12 (12-20); Aspartate Amino Transferase 42 U/L (5-37); Blood Urea Nitrogen 8 mg/dL (9-16); Calcium 8.6 mg/dL (8.4-10.2); Carbon Dioxide 23 mmol/L (22-29); Chloride 110 mmol/L (96-108); Creatinine Clr Calc Pharmacy 114.9; Estimated Glomerular Filt Rate > 60; Potassium 4.1 mmol/L (3.3-5.1); Sodium 141 mmol/L (135-145); Total Protein 7.6 g/dL (6.5-8.0)
--- OUTSIDE RECORDS SUMMARY | 2025-08-26 07:44 | XMS_ITS | Clinical Summary ---
Author Organization [facility] Address [address] [address] Phone Care Team Providers Care Gum Machine Filler Name Role Phone Jailene Young MD Unavailable [phone] Raleigh Rosales MD Unavailable [phone] Yanet Ferguson [facility] Primary Care Provid er Allergies Active Allergy Reactions Criticality Noted Date Comments Sulfa (Sulfonamide Antibiotics) Hives 11/2016 Medications EPINEPHrine 0.3 mg/0.3 mL auto-injector INJECT 1 PEN IN THE MUSCLE ONE TIME DIRECTED 11/26/2021 Active LORazepam (ATIVAN) 0.5 MG tabletIndicatio ns:Panic disorder (episodic paroxysmal anxiety) Take 1 tablet (0.5 mg total) by mouth 2 (two) times a day as needed for anxiety. 20 tablet 08/10/2023 Active fluticasone propionate (FLONASE) 50 mcg/actuation nasal spray 1 spray by Nasal route 2 (two) times a day. 16 g 11/22/2023 Active hydrOXYzine (ATARAX) 50 MG tablet Take 1 tablet (50 mg total) by mouth nightly at bedtime as needed (sleep). 30 tablet 11/22/2023 Active Active Problems Problem Noted Date Diagnosed Date Fluid level behind tympanic membrane of left ear 11/25/2023 Assessment & Plan (11/25/2023 11:29 AM EDT): Patient with mild middle ear effusion-May be cause of symptoms. Suspect allergy related-will treat with Flonase, Sudafed, hydroxyzine. Acute hearing loss of left ear 11/25/2023 Assessment & Plan (11/25/2023 11:30 AM EDT): Patient with mild acute hearing loss of left ear-recommended treatment with high-dose prednisone to preserve hearing. Patient to follow-up if persistent despite treatment. Mixed hyperlipidemia 09/03/2023 Pain in right elbow 08/10/2023 Assessment & Plan (09/17/2023 10:02 AM EST): History and exam most c/w lateral epicondylitis vs other overuse syndrome/tendonitis. Reviewed conservative measures of relative rest, applying ice regularly, [id number] NSAIDs, (ibuprofen or naproxen) and / or acetaminophen. Home physical therapy exercises/care instructions have been provided. Discussed potential benefit of tennis elbow strap. If symptoms persist, could arrange for formal physical therapy referral. Discussed other possible interventions like corticosteroid injection if symptoms are refractory. Overweight with body mass in dex (BMI) of 25 to 25.9 in adult 08/10/2023 Assessment & Plan (09/17/2023 10:02 AM EST): Weight stable, BMI 25.15. Continue efforts re: healthy, balanced diet and active lifestyle. Alcohol intake above recommended sensible limits 08/10/2023 Assessment & Plan (09/17/2023 10:06 AM EST): Report frequent low level drinking (1-2 glasses of wine 3-4 nights/week) and rare binges (>4 drinks every few months). Alcohol screening borderline indicative of alcohol misuse, Audit-C 12/06. Reviewed health consequences associated with prolonged exposure to heavy amounts of alcohol. Discussed concerns of utilizing alcohol to numb feelings of depression/anxiety. Informed patient to let us know if their relationship with alcohol changes as we have resources available for them. He does not feel this causes him any problems. Will follow-up at future visits. Check liver function. Panic disorder (episodic paroxysmal anxiety) Assessment & Plan (09/17/2023 10:09 AM EST): Recent experience of severe anxiety/panic resulting in ED visit. No current medications, discussed concept of daily vs PRN medications, risks/benefits/side effects reviewed. Not interested in starting daily SSRI/SNRI. Rx sent for sparing use of lorazepam PRN. Emphasized the importance of cognitive skills and encouraged pt to connect with a therapist. Can self-refer to any area office including [facility], [facility] and [facility]. Also suggested he explore online options through [employer] and/or [employer]. Discussed that the best outcomes, with lowest chance of remission occurs with a combination of medication, counseling and good self-care: healthy eating, adequate sleep, avoiding negative psychoactive substances [like alcohol, caffeine] and regular exercise. Resolved Problems Problem Noted Date Diagnosed Date Resolved Date Abdominal pain, diffuse 06/25/201905/29 Abdominal pain, epigastric 06/25/2019 0 09/17/2023 Assessment & Plan (06/26/2019 7:41 AM EDT): She will initially with some sternal pain does not sound cardiac at all as he is able to exercise weight lift etc. without difficulty did recommend trial of PPI as it sounds like he has gastritis as he has nausea and also gets associated reflux symptoms no melena or dysphasia. Did discuss upper GI or endoscopy if problems persist warned of potential side effects from omeprazole SBO (small bowel obstruction) 07/11/2018 08/10/2023 Assessment & Plan (07/13/2018 1:51 PM EST): Patient admitted with acute onset abdominal pain nausea and vomiting. CT suggestive of SBO. Patient with no prior history of small bowel obstruction or abdominal surgery. He has been seen by Dr. Heath of surgery who recommended conservative management and monitoring. Patient has been slowly improving with some decrease in pain but also normalization of white count flatus hunger. His x-ray is also improved advance diet to clears, continue small rate of IV fluid try to transition to oral pain medication Immunizations Immunization Administration Dates Next Due Influenza Quadrivalent Preservative Free IM 06/27 Tdap 12/10/2013 Family History Medical History Relation Comments Stomach cancer Maternal Grandmother Diabetes type II Mother Breast cancer Paternal Cousin 1 Diabetes type I Paternal Cousin 2 Irritable bowel syndrome Sister Colon cancer Neg Hx Heart disease Neg Hx Prostate cancer Neg Hx Relation Status Comments Maternal Grandmother Mother Paternal Cousin 1 Paternal Cousin 2 Alive Sister Social History Tobacco Use Types Packs/Day Years Used Date Smoking Tobacco: Some Days Cigarettes Smokeless Tobacco: Never Tobacco Cessation:Ready to Q uit: Not Asked; Counseling Given: Not Answered Comments:Socially, doesn't buy his own, will smoke 1-2 when out Alcohol Use Standard Drinks/Week Comments Yes 8 (1 standard drink = 0.6 oz pure alcohol) 1-2 glasses of wine 3-4 nights/week. >4 drinks every few months Child or Family Care Answer Date Record ed Do you have problems with on e of the following making it difficult for you to work, study, or receive health care? No 08/03/2023 Education Answer Date Recorded Are you interested in more education? Not on julissa e 08/12/2025 Are you concerned about learning? Not on file 08/12/2025 No 08/12/2025 No 08/12/2025 Food Answer Date Recorded Within the past 6 months we worried whether our food would run out before we got money to buy more. Never True 08/03/2023 Within the past 6 months the food we bought just didn't last and we didn't have enough money to get more. Never True Residential Stability Answer Date Recor ded What is your housing situation today? I have cesar ott 08/03/2023 How many times have you move d in the past 12 months? Zero (I did not move) 08/03/2023 Paying for Meds Answer Date Recorded Do you have trouble paying for medicines? Yes 08/03/2023 Paying Utility Bills Answer Date Record ed Do you have trouble paying your heating or elect ricity bill? Yes 08/03/2023 Transportation Answer Date Recorded Has the lack of transportati on kept you from medical appointments or from getting medications? No 08/03/2023 Unemployment Answer Date Recorded Are you currently unemployed or working on a part-time or temporary basis, and looking for work? Yes 08/03/2023 Digital Access Answer Date Recorded No 08/12/2025 No 08/12/2025 Reliable internet access at home? Not on file 08/12/2025 Device with a working camera? Not on file Intimate Partner Violence Answer Date R ecorded Denied Basic Needs Not on file 08/03/2023 In the past 12 months have y ou been in a relationship with a person who hurts, threatens, or tries to control you? No 08/03/2023 Worried food would run out Not on file 08/03 In the past 12 months have y ou been in a relationship with a person who hurts, threatens, or tries to control you? No 08/03/2023 Sex and Gender Information Value Date Recorded Sex Assigned at Male 09/24/2017 2:20 AM EST Legal Sex Male 9:09 PM EDT Gender Identity Male 09/24/2017 2:20 AM EST Sexual Orientation Straight 09/24/2017 2: 20 AM EST Last Filed Vital Signs Vital Sign Reading Time Taken Comments Blood Pressure 126/88 11/22/2023 11:44 AM EDT Pulse 79 11/22/2023 11:44 AM EDT Temperature 36.8 C (98.3 F) 08/10/2023 2:52 PM EST Respiratory Rate 18 01/11/2022 9:24 AM EDT Oxygen Saturation 98% 11/22/2023 11:44 AM EDT Inhaled Oxygen Concentration - - Weight 81.2 kg (179 lb) 11/22/2023 11:44 AM EDT Height 172.7 cm (5' 8 ) 08/10/2023 2:52 PM EST Body Mass Index 27.22 08/10/2023 2:52 PM EST Plan of Treatment Health Maintenance Due Date Last Done Comments SMOKING Hx and SMOKELESS TOBACCO SCREENING 12/01/2000 PNEUMOCOCCAL VACCINES (0-49 years) (1 of 2 - PCV) 12/01/2006 Adult Td,Tdap Booster 12/11/2023 12/10/2013 DEPRESSION SCREENING 08/03/2024 08/03/2023 INFLUENZA VACCINE (#1) 2025 07/14/2018 COVID-19 VACCINE (1 - 2024-2 6 season) 2025 SCREENING FOR DIABETES 08/10/2026 08/10/2023 LIPID PANEL 08/10/2028 08/10/2023 HEPATITIS C SCREENING Completed 06/24/2024 , 08/10/2023 HIV ONE-TIME SCREENING (18-6 5 YEARS) Completed 06/24/2024 HEPATITIS A VACCINES Aged Out No long er eligible based on patient's age to complete this topic HIB VACCINES Aged Out No longer eligi ble based on patient's age to complete this topic MENINGOCOCCAL VACCINES (ACWY) Aged Out No longer eligible based on patient's age to complete this topic MENINGOCOCCAL VACCINES (B) Aged Out N o longer eligible based on patient's age to complete this topic Medical Devices Not on file Procedures Procedure Name Priority Date/Time Associated Diagnosis Comments HEPATITIS C ANTIBODY, QUALITATIVE Routine 06/24/2024 9:34 AM EDT Routine screening for STI (sexually transmitted infection) Unprotected sexual intercourse LIPID PANEL Routine 08/10/2023 4:05 PM EST Screening for lipoid disorders Overweight with body mass index (BMI) of 25 to 25.9 in adult from Last 3 Months or Most Recently Relevant to Health Maintenance Results * Hepatitis C antibody, qualitative (06/24/2024 9:34 AM EDT) HCV NON-REACTIV E NON-REACTI VE [facility] Blood 06/24/2024 9:34 AM EDT 06/24/2024 9:42 AM EDT Yanet Ferguson [facility] LAB BLOOD BKR ORDERA BLES Final Result [address] [address] * (ABNORMAL) Lipid panel (08/10/2023 4:05 PM EST) HDL 60 mg/dL [facility] Comment: Interpretation <40 mg/dL: Low HDL cholesterol (major risk factor for CHD) Greater than or equal to 60 mg/dL: High HDL cholesterol ( negative risk factor for CHD) HDL - cholesterol is affected by a number of factors, e.g. smoking, excerise, hormones, sex and age. CHOLESTEROL 247(H) 0 - 240 mg/dL [facility] TRIGLYCERIDES 285(H) 30 - 160 mg/dL [facility] LDL 130(H) 50 - 129 mg/dL [facility] Comment: LDL levels in terms of risk for coronary heart disease: <100 mg/dL: Optimal 100-129 mg/dL: Near or above optimal 130-159 mg/dL: Borderline high 160-189 mg/dL: High >190 mg/dL: Very High CARDIAC RISK RATIO 4.1 3.4 - 5.0 [facility] Blood 08/10/2023 4:05 PM EST 08/10/2023 4:11 PM EST Yanet Ferguson [facility] LAB BLOOD BKR ORDERA BLES Final Result [facility] [address] [place] [address] from Last 3 Months or Most Recently Relevant to Health Maintenance Advance Directives For more information, please contact: [phone] (9AM - 5PM Kristal/[facility], Sunday-Sunday) * Full Code (Confirmed) (Latest Code Status on File) Date Activated Date Inactivated Comments 07/11/2018 2:48 AM 07/14/2018 8:38 PM Question Answer Comments Code Status Confirmed With: Patient Code Status Communicated To: Inpatient Attending Care Teams Gum Machine Filler Relationship Specialty Start Date End Date Phyllis Yanet ANGELIA Molina [address] [place] [phone] [email or web address] PCP - General Family Medicine 08/10/23 Jailene Young MD [address] [place] [phone] [email or web address] Historical LMR Provider 06/14/17 Raleigh Rosales MD [address] [place] [phone] [email or web address] Historical LMR Provider 06/14/17 Additional Source Comments The information contained in this document represents components of the legal health record. It is not the complete legal health record.[facility]
--- OUTSIDE RECORDS SUMMARY | 2025-08-26 07:44 | XMS_ITS | Encounter Summary ---
Author Organization [facility] Address [address] [place] [phone] Phone Care Team Providers Care Change Management Manager Name Role Phone JulioKelby WHITNEY Unavailable [phone] Jailene Young MD Unavailable [phone] Raleigh Rosales MD Unavailable [phone] Raleigh Rosales MD Primary Care Provider + Unknown, Unknown Primary Care Provider Cassidy Velazco MD Primary Care Provider [email or web address] Yanet Ferguson CNP Primary Care Provid er Encounter Details Date Type Department Care Team (Latest Contact Info) Description 05/06/2018 Transcribe Orders [facility] Specimen Processing [address] [place] [address] Jase Man PA-C [address] [place] [id number] [email or web address] Dysuria (Primary Dx) Social History Tobacco Use Types Packs/Day Years Used Date Smoking Tobacco: Former Smokeless Tobacco: Never Sex and Gender Information Value Date Recorded Sex Assigned at Male 09/24/2017 2:20 AM EST Legal Sex Male 9:09 PM EDT Gender Identity Male 09/24/2017 2:20 AM EST Sexual Orientation Straight 09/24/2017 2: 20 AM EST documented as of this encounter Plan of Treatment Not on file documented as of this encounter Results * Chlamydia Trachomatis and Neisseria Gonorrhoeae Nucleic Acid Detection (05/06/2018 5:45 PM EDT) CHLAMYDIA TRACHOMATIS Not Detected Not Detected [facility] NEISERIA GONORRHOEAE Not Detected Not Detected [facility] SPECIMEN TYPE URINE [facility] Urine (Urine) 05/06/2018 5:4 5 PM EDT 05/07/2018 9:34 AM EDT Jase Man PA-C LAB GENERAL ORDERABLES F inal Result [facility] [address] [place] [address] documented in this encounter Visit Diagnoses Diagnosis Dysuria- Primary documented in this encounter Additional Health Concerns Infection Onset Date Last Indicated Resolved Time CoV-Risk 01/11/2022 01/11/2022 01/22/2022 1:22 AM EDT documented as of this encounter Care Teams Change Management Manager Relationship Specialty Start Date End Date Raleigh Rosales MD [address] [place] [address] [address] [place] [address] [email or web address] PCP - General Family Medicine 11/16/17 06/21/20 Unknown, Lito, PCP - General 06/22/20 07/06/20 Cassidy Arnett MD [email or web address] PCP - General Family Medicine 07/07/20 08/09/23 Yanet Ferguson, ANGELIA [address] [place] [address], [address] [place] [address] [email or web address] PCP - General Family Medicine 08/10/23 Kelby Kim NP [address] [place] [address] 2_[place] [address] [email or web address] Historical LMR Provider 06/14/17 09/03/21 Jailene Young MD [address] [place] [address], [address] [place] [address] [email or web address] Historical LMR Provider 06/14/17 Raleigh Rosales MD [address] [place], [place] [address] [place] [address] [email or web address] Historical LMR Provider 06/14/17 documented as of this encounter Additional Source Comments The information contained in this document represents components of the legal health record. It is not the complete legal health record.[facility]
[2025-08-26 07:56] LABS: Resp Syncy Virus RNA Qual PCR NEGATIVE (Negative); SARS COV2 PCR INHOUSE NEGATIVE (Negative)
--- NOTE | 2025-08-26 08:04 | ED.URI ---
HPI - URI/Sore Throat General Chief Complaint: Upper Respiratory Symptoms Stated Complaint: resp symptoms Time Seen by Provider: 08/26/25 07:11 Source: patient Mode of arrival: ambulatory Limitations: no limitations History of Present Illness ED Provider: DAVIDE RODRIGUEZ PA-C HPI Narrative: 39-year-old male presents to the ED today for evaluation of feeling generally unwell x4 weeks. Reports intermittent upper respiratory symptoms including fevers, cough productive of yellow/green sputum, nasal congestion, sinus pain. He has been taking [id number] Mucinex, DayQuil, NyQuil without relief. No known sick contacts. He assumed that he had the flu and was treating his symptoms as such however given the duration of symptoms, his mother advised that he come to the ED for further evaluation. He was unable to make an appointment with his PCP. Related Data Previous Rx's ?Medication ?Instructions ?Recorded doxycycline hyclate 100 mg capsule 100 mg PO BID 7 days #14 caps 11/26/21 epinephrine 0.3 mg/0.3 mL 0.3 mg (0.3 mL) IM Q4H PRN 11/26/21 injection, auto-injector (EpiPen) anaphylaxis #2 ea famotidine 20 mg tablet (Pepcid) 20 mg PO DAILY PRN abdominal 11/26/21 discomfort #30 tabs ondansetron 4 mg disintegrating 4 mg PO Q8H PRN nausea and 11/26/21 tablet vomiting #20 tabs prednisone 20 mg tablet 40 mg (2 x 20 mg) PO DAILY 4 days 11/26/21 #8 tabs cyclobenzaprine 10 mg tablet 10 mg PO TID PRN muscle spasm #20 06/19/22 tabs naproxen 500 mg tablet 500 mg PO BID PRN pain #14 tabs 06/19/22 amoxicillin 875 mg-potassium 1 tab PO BID 7 days #14 tabs 08/27/22 clavulanate 125 mg tablet diphenhydramine HCl 25 mg tablet 50 mg (2 x 25 mg) PO TID PRN 08/27/22 (Benadryl Allergy) allergic reaction #20 tabs prednisone 20 mg tablet 40 mg (2 x 20 mg) PO DAILY 08/27/22 inflammation 5 days #10 tabs acetaminophen 500 mg tablet 1,000 mg (2 x 500 mg) PO Q6H PRN 03/05/25 (Tylenol Extra Strength) fever or pain #30 tabs ibuprofen 600 mg tablet 600 mg PO Q6H PRN fever or pain 03/05/25 #30 tabs amoxicillin 875 mg-potassium 1 tab PO BID 7 days #14 tabs 08/26/25 clavulanate 125 mg tablet azithromycin 250 mg tablet See Rx Instructions PO .COMPLEX #6 08/26/25 tabs benzonatate 100 mg capsule 100 mg PO BID PRN cough #20 caps 08/26/25 Allergies Allergy/AdvReac Type Severity Reaction Status Date / Time No Known Allergies Allergy Verified 08/26/25 06:33 Review of Systems Review of Systems: Yes all other systems are reviewed and are negative [facility] Past Medical History Attestation statement: The following information was validated with the patient. Source: old records reviewed and nursing notes reviewed Social History Social History Alcohol intake: current Alcohol intake frequency: 3 or more drinks per day Alcohol type: beer, wine and hard liquor Patient Tobacco Use Status: Never used Tobacco Substance Use Type: Marijuana Advance Directives: No Advance Directives Information Provided: Yes Do you have a plan to hurt others: No Plan Physical Exam Vital Signs: Vital Signs: Last Vital Signs Temp 98.2 F 08/26/25 06:31 Pulse 95 08/26/25 06:31 Resp 20 08/26/25 06:31 BP 137/90 H 08/26/25 06:31 Pulse Ox 98 08/26/25 06:31 O2 Del Method Room Air 08/26/25 06:31 BMI result Body Mass Index 25.1 Patient is hypertensive, vitals otherwise WNL General: Well appearing, in no acute distress. Skin: Warm, dry, intact. No rashes or lesions. Head: Normocephalic, atraumatic. EENT: Hearing is intact b/l. Conjunctiva clear. PERRLA. EOM intact. Moist mucous membranes.? Posterior oropharynx without erythema or edema, no tonsillar exudates, no peritonsillar masses, uvula midline, controlling secretions, speaking in complete sentences. Left maxillary sinus tender to percussion. Neck: Supple without LAD Cardiac: Chest wall symmetric. RRR Lungs: Normal respiratory effort without accessory muscle use. CTA bilaterally. No rales, rhonchi, or wheezes.? Abdomen: Soft, non-tender, non-distended. No rebound tenderness or guarding. Positive BS x4. Back: No midline spinous or paraspinal tenderness. No step off deformity. Ext: Upper and lower extremities atraumatic, without tenderness, deformity, swelling or erythema Neuro: AOx3. Normal speech. Ambulating with steady gait. Course Course Course Narrative: 0816 -- CBC without leukocytosis or left shift. No anemia, H and H stable. Chemistry without acute electrolyte abnormality requiring intervention. No HAWK. Random glucose 124, no anion gap. Liver function appears to be around baseline. Patient tested positive for influenza B. Negative influenza a, COVID, RSV. His chest x-ray does not demonstrate any infiltrate outlet contamination. > patient's symptoms have been ongoing for approximately 3-4 weeks. will treat atypical infection with zpack. > exam concerning for sinus infection. will treat with augmentin. > tessalon sent to pharmacy for his cough. advised hydration and motrin/tylenol Patient has remained stable throughout ED visit today. Discussed worrisome signs and symptoms and when to return to the ED. All questions answered at this time. Patient is agreeable with disposition and stable for discharge. Medical Decision Making Medical Decision Making [facility] Narrative: 39-year-old male presents to the ED today for evaluation of feeling generally unwell x4 weeks. Patient is slightly hypertensive, vitals are otherwise WNL. He is well-appearing, no acute distress. He is tender to palpation over left maxillary sinus. Exam is otherwise benign. Differential diagnosis includes viral syndrome, bronchitis, pneumonia, sinusitis Plan for viral swabs, chest x-ray, basic blood work, re-evaluation Differential Diagnosis Differential Diagnoses: The differential diagnosis associated with the presentation includes As above Admission/Observation Not indicated Lab Data [facility] Lab Attestation statement: I reviewed the patient's lab results. as above. 08/26/25 06:43 08/26/25 06:43 Labs: Lab Results 08/26/25 Range/Units 06:43 WBC 7.4 (4.8-10.8) X10*3/uL RBC 5.53 (4.60-5.80) X10*6/uL Hgb 15.8 (14.0-18.0) g/dl Hct 46.0 (42.0-52.0) % MCV 83.2 (80.0-98.0) fL MCH 28.6 (27.0-33.0) pg MCHC 34.3 (31.0-36.0) g/dl RDW 12.3 (11.0-16.0) % Plt Count 257 (160-400) X10*3/uL MPV 9.6 (9.4-12.4) fL Immature Gran % (Auto) 0.1 (0.0-0.4) % Neut % (Auto) 45.4 (45-73) % Lymph % (Auto) 41.0 H (20-40) % Roberts % (Auto) 10.2 (2-11) % Eos % (Auto) 3.0 (0-4) % Baso % (Auto) 0.3 (0-2) % Lymph # (Auto) 3.0 (1.2-4.9) X10*3/uL Roberts # (Auto) 0.8 (0.1-1.2) X10*3/uL Eos # (Auto) 0.2 (0.0-0.4) X10*3/uL Baso # (Auto) 0.0 (0.0-0.2) X10*3/uL Abs Immat Gran (auto) 0.01 (0.00-0.03) X10*3/uL Absolute Neuts (auto) 3.3 (2.0-8.3) x10*3/uL Absolute Nucleated RBC 0.000 (0.0-0.012) X10*3/uL Nucleated RBC % (auto) 0.0 (0.0-0.2) /100WBC Sodium 141 (135-145) mmol/L Potassium 4.1 (3.3-5.1) mmol/L Chloride 110 H (96-108) mmol/L Carbon Dioxide 23 (22-29) mmol/L Anion Gap 12 (12-20) BUN 8 L (9-16) mg/dL Creatinine 0.88 (0.5-1.4) mg/dL Estim Creat Clear Calc 114.9 Estimated GFR > 60 Random Glucose 124 H (60-115) mg/dL Calcium 8.6 D (8.4-10.2) mg/dL Total Bilirubin 0.3 (0.0-1.0) mg/dL AST 42 H (5-37) U/L ALT 70 H (0-40) U/L Alkaline Phosphatase 86 (39-117) U/L Total Protein 7.6 (6.5-8.0) g/dL Albumin 4.3 (3.5-5.0) g/dL Influenza Type A (PCR) NEGATIVE (Negative) Influenza Type B (PCR) POSITIVE A (Negative) RSV RNA Qual (PCR) NEGATIVE (Negative) SARS-CoV-2 RNA (RT-PCR) NEGATIVE (Negative) Independent Interpretation I performed an independent interpretation of an: Plain X-Ray Interpretation: cxr without infiltrate or focal consolidation Radiology Impression Discussion of test interpretation with radiology: I have reviewed the radiologist's reading. Radiologist Impression: Procedure(s): XR chest 1V Accession Number(s): [id number] cc: Physician,Unknown ; Doni Duong MD~ Reason for Exam: cough EXAMINATION: XR CHEST 1 VIEW HISTORY: cough COMPARISON: Comparison is made with the prior examination dated 03/05/2025. FINDINGS: A single AP portable view of the chest performed at is submitted. The lungs are expanded and clear. There is no pleural effusion, pneumothorax, or pulmonary vascular congestion. The heart is normal in size. The bones are intact. XR/XR chest 1V IMPRESSION: No acute cardiopulmonary abnormality. Electronically signed by: Nakul Feliciano MD 08/26/2025 08:05 AM [facility] [place] Prescription Management I considered prescription management with: Pain Medication and Antibiotic (Azithromycin, Augmentin) Social Determinants Patient?s care significantly limited by Social Determinants of Health including: Other Social Determinant of Health Critical Care Time Critical Care Time Critical Care Time: No Discharge Plan Discharge Clinical Impression: Influenza B Patient Disposition: Home, Self-Care Instructions: Influenza (ED) Additional Instructions: You tested positive for influenza B. You tested negative for COVID and RSV. Your blood work is reassuring. Your chest x-ray is reassuring and does not show any evidence of pneumonia. Given the length of your symptoms, I am starting you on antibiotics (augmentin and azithromycin). Take these as prescribed over the next week. Make sure you are staying adequately hydrated and getting lots of rest. I am sending althea tamayo to your pharmacy for you to take as needed for cough. Alter ibuprofen and Tylenol for fevers and body aches. Follow up with your primary care provider. If symptoms persist or worsen please return to the emergency department. The case of an emergency call 911. Prescriptions: New amoxicillin-pot clavulanate 875-125 mg tablet 1 tab PO BID 7 Days Qty: 14 0RF azithromycin 250 mg tablet See Rx Instructions PO .COMPLEX Qty: 6 0RF Rx Instructions: For 250 mg dose pack: take 500 mg today (day 1), then 250 mg for 4 days (days 2-5) benzonatate 100 mg capsule 100 mg PO BID PRN (Reason: cough) Qty: 20 0RF No Action naproxen 500 mg tablet 500 mg PO BID PRN (Reason: pain) Qty: 14 0RF cyclobenzaprine 10 mg tablet 10 mg PO TID PRN (Reason: muscle spasm) Qty: 20 0RF prednisone 20 mg tablet 40 mg PO DAILY 5 Days Qty: 10 0RF diphenhydramine HCl [Benadryl Allergy] 25 mg tablet 50 mg PO TID PRN (Reason: allergic reaction) Qty: 20 0RF amoxicillin-pot clavulanate 875-125 mg tablet 1 tab PO BID 7 Days Qty: 14 0RF epinephrine [EpiPen] 0.3 mg/0.3 mL auto-injector 0.3 mg IM Q4H PRN (Reason: anaphylaxis) Qty: 2 0RF doxycycline hyclate 100 mg capsule 100 mg PO BID 7 Days Qty: 14 0RF prednisone 20 mg tablet 40 mg PO DAILY 4 Days Qty: 8 0RF famotidine [Pepcid] 20 mg tablet 20 mg PO DAILY PRN (Reason: abdominal discomfort) Qty: 30 0RF ondansetron 4 mg tablet,disintegrating 4 mg PO Q8H PRN (Reason: nausea and vomiting) Qty: 20 0RF ibuprofen 600 mg tablet 600 mg PO Q6H PRN (Reason: fever or pain) Qty: 30 0RF acetaminophen [Tylenol Extra Strength] 500 mg tablet 1,000 mg PO Q6H PRN (Reason: fever or pain) Qty: 30 0RF Referrals: Physician,Unknown J [Primary Care Provider, Medical] Stand Alone Forms: Work/School Release Print Language: Occitan
[2025-08-26 08:43] VITALS: BP 137/90; PULSE 95; RESP 20; TEMP 36.8; O2SAT 98
[2025-08-26 09:17] LABS: IDNOW Serial# 6674DD1D; Strep A Nucleic Acid Negative (Negative)
== END 2025-08-26 08:43 | disposition home or self-care (01) ==
PROVIDERS: Emergency Provider Emergency Medicine Emergency Medical Services
DX: J10.1 Influenza due to other identified influenza virus with other respiratory manifestations (principal); R05.9 Cough, unspecified; R50.9 Fever, unspecified
CPT/HCPCS: 71045; 80053; 85025; 87637; 87651; 99283

== ENCOUNTER → 2025-08-26 06:50 | Outpatient (BNV) | payer BC, OTHER, SELFPAY | PROVIDERS: Emergency Provider Emergency Medicine Emergency Medical Services; Visit Provider Radiology Diagnostic Radiology | DX: R05.9 Cough, unspecified (principal) | CPT/HCPCS: 71045 ==